=== PATIENT | female | born 1955 ===

== ENCOUNTER 2020-01-11 14:46 | Emergency (ER) | payer SELFPAY ==
[~2020-01-11] VITALS: Ht 166.4 cm; Wt 104.3 kg
--- NOTE | 2020-01-11 16:11 | Emergency Department Note ---
History of Present Illnes History of Present Illness Chief Complaint: COVID PUI History of Present Illness This is a 64 year old female referred ED after testing positive Coban 19, states she is here because she feels tired. . Chief Complaint Comment Pt arrived to the ER via EMS with c/o generalized weakness. States she was tested positive for Covid-19 on 01/09/20 @[facility] facility. Pt denies any SOB, diarrhea, or any other complaints, states "I just feel tired". NAD noted at the present time. RR even and unlabored. Dr. Ernst evaluating pt at triage. Historian: Patient Arrival Mode: Car Onset (how long ago): day(s) Severity: mild Onset quality: gradual Duration (how long): day(s) Progression: unchanged Chronicity: new Context: Reports recent illness Relieving factors: none Exacerbating factors: none Past Medical/Family History Physician Review I have reviewed the patient's past medical and family history. Any updates have been documented here. Past Medical History Recent Fever: Yes Clinical Suspicion of Infectio: Yes New/Unexplained Change in Ment: No Past Medical History: Hypertension Past Surgical History: Other Surgery: LEFT HIP SX Social History Smoking Cessation: Former smoker Alcohol Use: Social Physically hurt or threatened: No Review of Systems Review of Systems Constitutional: Reports as per HPI, Reports weakness EENTM: Reports no symptoms Cardiovascular: Reports no symptoms Respiratory: Reports no symptoms Gastrointestinal: Reports no symptoms Genitourinary: Reports no symptoms Musculoskeletal: Reports no symptoms Integumentary: Reports no symptoms Neurological: Reports no symptoms Psychological: Reports no symptoms Endocrine: Reports no symptoms Hematological/Lymphatic: Reports no symptoms Physical Exam Related Data Allergies: Coded Allergies: methocarbamol (Verified Allergy, Unknown, Hallucinations, 01/11/20) Triage Vital Signs Vital Signs Date Time Temp Pulse Resp B/P (MAP) Pulse Ox O2 Delivery O2 Flow Rate FiO2 01/11/20 14:46 100.1 105 16 146/95 98 Room Air Vital signs reviewed: Yes Physical Exam CONSTITUTIONAL Constitutional: Present well-developed, Present well-nourished HENT HENT: Present normocephalic, Present atraumatic, Present oropharynx clear/moist, Present nose normal HENT L/R: Present left ext ear normal, Present right ext ear normal EYES Eyes: Reports PERRL, Reports conjunctivae normal NECK Neck: Present ROM normal PULMONARY Pulmonary: Present effort normal, Present breath sounds normal CARDIOVASCULAR Cardiovascular: Present regular rhythm, Present heart sounds normal, Present capillary refill normal, Present normal rate GASTROINTESTINAL Abdominal: Present soft, Present nontender, Present bowel sounds normal GENITOURINARY Genitourinary: Present exam deferred SKIN Skin: Present warm, Present dry MUSCULOSKELETAL Musculoskeletal: Present ROM normal NEUROLOGICAL Neurological: Present alert, Present oriented x 3, Present no gross motor or sensory deficits PSYCHOLOGICAL Psychological: Present mood/affect normal, Present judgement normal Assessment & Plan Medical Decision Making MDM 64-year-old well-appearing female arrives to the ED with complaints of cough fever loss of taste and smell. Patient is clinically presenting with signs and symptoms consistent with Covid 19 with a +test. Patient's oxygen saturation remained 99% even on exertion, no evidence of tachypnea or dyspnea noted in the ED. Spoke present length about the importance of sleeping on her stomach and rotating from side to side. Z-Martin given, signs and symptoms for return d iscussed. In the light of the Covid pandemic, disaster medicine care was given, no indications for a chest x-ray at this time given normal oxygen saturation and respiratory status. Patient clinically appears well, outpatient pulmonary follow-up given. The red flags for return to emergency department given. Patient understands the emergency department is open at all times to serve his needs as well as the needs of the community. Assessment & Plan Final Impression: (1) COVID-19 Depart Disposition: HOME, SELF-CARE Last Vital Signs Date Time Temp Pulse Resp B/P (MAP) Pulse Ox O2 Delivery O2 Flow Rate FiO2 01/11/20 14:46 100.1 105 16 146/95 98 Room Air RIN ERNST DO Jan 11, 2020 16:11
== END 2020-01-11 15:40 | disposition home or self-care (01) ==
LOC: ER 15:39
DX: U07.1 COVID-19 (principal); R53.1 Weakness; I10 Essential (primary) hypertension; Z87.891 Personal history of nicotine dependence
CPT/HCPCS: 99283